=== PATIENT | male | born 1995 | race Two or more races ===

== ENCOUNTER 2022-02-03 18:15 | Emergency (ER) | payer OTHER ==
[~2022-02-03] VITALS: Ht 177.8 cm; Wt 113.6 kg
[2022-02-03 18:30] VITALS: BP 144/69
[2022-02-03] MEDS ORDERED: ALBUTEROL SULF 2.5 MG/0.5ML(0.5%) NEB SOLN NEB ONE (19:45)
[2022-02-03] MEDS ORDERED: IPRATROPIUM BROM 0.5 MG/2.5ML INH SOL NEB ONE (19:45)
[2022-02-03] MEDS ORDERED: OSEL75CA5 PO (19:46)
[2022-02-03] MEDS ORDERED: ALBUAER3 IN (19:46)
== END 2022-02-03 20:06 | disposition home or self-care (01) ==
LOC: ER 18:15
DX: J10.1 Influenza due to other identified influenza virus with other respiratory manifestations (principal); J45.909 Unspecified asthma, uncomplicated; Z20.822 Contact with and (suspected) exposure to COVID-19
CPT/HCPCS: 36415; 71046; 87426; 87804; 94640; 99284; J7644